=== PATIENT | female | born 1985 | race Hispanic/Latino ===

== ENCOUNTER 2018-07-07 19:10 | Emergency (ER) | payer SELFPAY ==
[~2018-07-07] VITALS: Ht 160 cm; Wt 68.2 kg
[2018-07-07] MEDS ORDERED: DIABETIC (19:26)
[2018-07-07 20:40] LABS: HEMATOCRIT 42.6 % (37.0-47.0); HEMOGLOBIN 14.5 g/dl (12.0-16.0); IMMATURE GRANULOCYTES 0.7 % (0.0-5.0); MEAN CELL VOLUME 88.9 fL CALC (80.0-100.0); MEAN CORPUSCULAR HGB 30.3 pG CALC (26.0-32.0); NEUT# 11.84 thou/uL (2.00-7.15); RED BLOOD COUNT 4.79 mill/uL (4.20-5.60); RED CELL DISTRI WIDTH 12.3 % (11.5-15.5)
[2018-07-07 21:06] LABS: ALBUMIN 4.6 g/dL (3.2-5.0); ALKALINE PHOSPHATASE 94 u/l (38-126); ANION GAP 17 (6-22 (CALC)); BILIRUBIN, TOTAL 0.6 mg/dL (0.0-1.4); BUN 14 mg/dL (7-17); BUN/CREATININE RATIO 39 (12-20 (CALC)); CARBON DIOXIDE 19 mmol/l (22-30); CHLORIDE 108 mmol/l (95-108); CREATININE 0.3 mg/dL (0.5-1.0); GFR > 60 ML/MIN (>=60 (CALC)); GFR FOR AFR.AMER. > 60 ML/MIN (>=60 (CALC)); POTASSIUM 4.2 mmol/l (3.5-5.1); SGOT/AST 21 u/l (14-36); SODIUM 139 mmol/l (137-146)
[2018-07-07] MEDS ORDERED: METFORMIN1000 MG PO (22:03)
[2018-07-07 22:08] VITALS: BP 104/66
== END 2018-07-07 22:15 | disposition home or self-care (01) | DRG 159 ==
LOC: ED 19:10
PROVIDERS: Family Medicine
DX: M26.603 Bilateral temporomandibular joint disorder, unspecified (principal); R68.84 Jaw pain; E11.65 Type 2 diabetes mellitus with hyperglycemia; Z79.84 Long term (current) use of oral hypoglycemic drugs